=== PATIENT | female | born 1975 | race Asian ===

== ENCOUNTER → 2016-05-21 | Day surgery (SDC) | payer BC ==
[2016-05-21] VITALS (7 sets, daily range): BP systolic 104–124; BP diastolic 55–70
[~2016-05-21] VITALS: Ht 165.1 cm; Wt 60.3 kg
[~2016-05-21] MED LIST: COLACE100 MG ORAL; DiphenhydrAMINE 50mg/ml Inj IVP PRN; IBUPROFEN PO; IBUPROFEN200 MG ORAL; IRON325 M1 PO; LR 1000ml 1,000 ML IVLG SCH; LR 1000ml ONE; Midazolam 2mg/2ml Inj ONE; NORCO 10/3251 EA ORAL; Propofol 10mg/ml 20ml IV ONE; fentaNYL 100 mcg/2 mL IV ONE; fentaNYL 100 mcg/2 mL IV PRN
--- NOTE | 2016-05-21 07:58 | Pre-Procedure Note/Attestation ---
Pre-Procedure Note/Attestation Complete Prior to Procedure Planned Procedure: not applicable Procedure Narrative: esophagogastroduodenoscopycolon Indications for Procedure Pre-Operative Diagnosis: anemia Attestation I attest that I discussed the nature of the procedure; its benefits; risks and complications; and alternatives (and the risks and benefits of such alternatives ), prior to the procedure, with the patient (or the patient's legal sales representative leather goods). I attest that, if there was a reasonable possibility of needing a blood transfusion, the patient (or the patient's legal sales representative leather goods) was given the [facility] standardized written summary, pursuant to the Ashish Guerita Blood Safety Act ([place] Health and Safety Code # 1645, as amended). I attest that I re-evaluated the patient just prior to the surgery and that there has been no change in the patient's H&P, except as documented below: AMARILIS JORDAN May 21, 2016 07:58
--- NOTE | 2016-05-21 08:12 | Anethesia Preoperative Eval ---
Anesthesia Pre-op PMH/ROS General Date of Evaluation: May 21, 2016 Time of Evaluation: 07:42 Anesthesiologist: Cruz ASA Score: ASA 2 Mallampati Score Class I : Soft palate, uvula, fauces, pillars visible Class II: Soft palate, uvula, fauces visible Class III: Soft palate, base of uvula visible Class IV: Only hard plate visible Mallampati Classification: Class II Surgeon: Shaun Diagnosis: Anemia Surgical Procedure: EGD Colonocopy Anesthesia History: none Family History: no anesthesia problems Allergies: Coded Allergies: No Known Allergies (Unverified , 03/27/15) Past Medical History Cardiovascular: Denies: CAD, HTN, [place], arrhythmia, other, valve dz Pulmonary: Denies: COPD, LE, asthma, other Gastrointestinal/Genitourinary: Reports: GERD - mild, Denies: CRI, ESRD, other Neurologic/Psychiatric: Denies: CVA, TIA, dementia, depression/anxiety, other Endocrine: Denies: DM, hypothyroidism, other, steroids HEENT: Denies: CHILKO[place] (L), [place] (R), cataract (L), cataract (R), glaucoma, other Hematology/Immune: Reports: anemia, Denies: DVT, bleeding disorder, other Musculoskeletal/Integumentary: Denies: DDD, DJD, OA, RA, edema, other PMH Narrative: as above PSxH Narrative: Endometrial ablation Anesthesia Pre-op Phys. Exam Physician Exam Last Vital Signs Date Time Temp Pulse Resp B/P Pulse Ox O2 Delivery O2 Flow Rate FiO2 05/21/16 07:21 98.2 76 20 104/65 99 Room Air Constitutional: NAD Neurologic: CN 2-12 intact Cardiovascular: RRR, no M/R/G Respiratory: CTA Gastrointestinal: S/NT/ND Airway Exam Mallampati Score: Class II MO: full Neck: flexible ROM: full Teeth: intact Dentures: no lower, no upper Anesthesia Pre-op A/P Labs Urine Test Test 05/21/16 07:00 Urine HCG, Qualitative Negative Risk Assessment & Plan Assessment: ASA 2 Plan: MAC Pre-Antibiotics Drug: none DELISA ROSENBAUM M.D. May 21, 2016 08:12
--- NOTE | 2016-05-21 08:50 | Endoscopy Procedure Note ---
Endoscopy Procedure Note Indication for Procedure: anemia Procedures Performed: EGD, colonoscopy Operative Findings/Diagnosis: HH, gastritits - bx, normal colon Specimen: yes Pt Tolerated Procedure Well: Yes Estimated Blood Loss: none Anesthesiologist: see report Medication Given: see anesthesia record Implant(s) used?: No 50 yrs or older w/o bx or poly: Not Applicable 10yrs. F/U not recommended: Not Applicable If not recommended, why?: AMARILIS JORDAN May 21, 2016 08:50
--- NOTE | 2016-05-21 08:51 | Brief Operative Note ---
Immediate Post Operative Note Operative Note Chief Complaint: anemia Pre-op Diagnosis: anemia Procedure: EGD with Bx, colon Post-op Diagnosis: gastritis HH Surgeon: gallo Anesthesia: MAC Specimen: yes Complications: none Condition: stable Estimated Blood Loss: none Drains: none Implant(s) used?: No AMARILIS JORDAN May 21, 2016 08:51
--- NOTE | 2016-05-21 09:24 | Immediate Post-Op Evaluation ---
Immediate Post-Op Evalulation Immediate Post-Op Evalulation Procedure: EGD Colonoscopy Date of Evaluation: May 21, 2016 Time of Evaluation: 08:46 IV Fluids: 800 Blood Products: none Estimated Blood Loss: none Urinary Output: none Blood Pressure Systolic: 116 Blood Pressure Diastolic: 53 Pulse Rate: 64 Respiratory Rate: 20 O2 Sat by Pulse Oximetry: 99 Temperature (Fahrenheit): 97.4 Pain Score (1-10): 2 Nausea: No Vomiting: No Complications none Patient Status: awake, patent, none Hydration Status: adequate DELISA ROSENBAUM M.D. May 21, 2016 09:24
--- NOTE | 2016-05-21 09:34 | 48 Hour Post Anesthesia Eval ---
Post Anesthesia Evaluation Procedure: EGD Colonoscopy Date of Evaluation: May 21, 2016 Time of Evaluation: 09:33 Blood Pressure Systolic: 124 0: 59 Pulse Rate: 64 Respiratory Rate: 20 Temperature (Fahrenheit): 97.4 O2 Sat by Pulse Oximetry: 99 Airway: patent Nausea: No Vomiting: No Pain Intensity: 1 Hydration Status: adequate Cardiopulmonary Status: stable Mental Status/LOC: patient returned to baseline Follow-up Care/Observations: n/a Post-Anesthesia Complications: none Follow-up care needed: ready to discharge DELISA ROSENBAUM M.D. May 21, 2016 09:34
--- NOTE | 2016-05-21 09:37 | Operative Note - Dictated ---
GASTROENTEROLOGY PROCEDURE REPORT: DATE OF PROCEDURE: 05/21/2016 PROCEDURE: Upper gastrointestinal endoscopy with biopsy as well as colonoscopy. SURGEON: Sterling Anderson M.D. ANESTHESIA: Please see the separate anesthesiologist notes for details. PRE-ENDOSCOPIC DIAGNOSIS: Iron deficiency anemia. POST-ENDOSCOPIC DIAGNOSES: 1. A 1 cm hiatal hernia. 2. Mild gastritis status biopsy of the antrum. 3. Status post random biopsy of the duodenum and esophagus. 4. Normal colonoscopy. PROCEDURE: The procedure, its risks, indications, alternatives, and possible complications including, but not limited to, bleeding, infection, perforation, , and anesthesia complications were explained to the patient and informed consent was obtained. The patient was then sedated in the left lateral decubitus position. Rectal exam was done. The colonoscope was introduced in the rectum and advanced to the cecum. The cecum was identified by the appearance of the ileocecal valve. The colonoscope was then gradually withdrawn. The mucosa examined carefully. Examination of the colonic mucosa revealed no polyps, masses, or ulcers. Retroflexed view of the rectum was unremarkable. The colonoscope was removed. The patient was sent to recovery in good condition. COMPLICATIONS: None. RECOMMENDATIONS: 1. Follow up biopsy results. 2. Outpatient followup. Sterling Anderson M.D. DR: Arias JOB#: [id number] CC:
--- NOTE | 2016-05-21 09:48 | Operative Note - Dictated ---
GASTROENTEROLOGY PROCEDURE REPORT: DATE OF PROCEDURE: 05/21/2016 PROCEDURE: Upper gastrointestinal endoscopy with biopsy as well as colonoscopy. SURGEON: Sterling Anderson M.D. ANESTHESIA: Please see the separate anesthesiologist notes for details. PRE-ENDOSCOPIC DIAGNOSIS: Iron deficiency anemia. POST-ENDOSCOPIC DIAGNOSES.: 1. Mild gastritis status post biopsy of the antrum. 2. Status post random biopsy of the duodenum. 3. A 1 cm hiatal hernia. 4. Status post random biopsy of the lower and mid esophagus. 5. Normal colonoscopy. PROCEDURE: The procedure, its risks, indications, alternatives, and possible complications including, but not limited to, bleeding, infection, perforation, , and anesthesia complications were explained to the patient and informed consent was obtained. The patient was then sedated in the left lateral decubitus position. A diagnostic upper endoscope was introduced through the oropharynx and advanced to the duodenum without difficulty. The endoscope was then gradually withdrawn. The mucosa examined carefully. Examination of the upper gastric mucosa revealed gastritis and a 1 cm hiatal hernia. The endoscope was removed after biopsies were obtained and rectal exam was done. The colonoscope was introduced in the rectum and advanced to the cecum without difficulty. The cecum was identified by the appearance of the ileocecal valve. The colonoscope was then gradually withdrawn and mucosa examined carefully. Examination of colonic mucosa revealed no significant pathology. The retroflexed view of rectum was unremarkable. The colonoscope was removed. The patient was sent to recovery in good condition. COMPLICATIONS: None. RECOMMENDATIONS: 1. Follow up biopsy results. 2. Outpatient followup. Sterling Anderson M.D. DR: Arias JOB#: [id number] CC:
== END | disposition home or self-care (01) ==
LOC: GAS 06:45
DX: K29.70 Gastritis, unspecified, without bleeding (principal); K44.9 Diaphragmatic hernia without obstruction or gangrene; K21.9 Gastro-esophageal reflux disease without esophagitis; G70.00 Myasthenia gravis without (acute) exacerbation
CPT/HCPCS: 43239; 81025; J2250; J2704; J3010; J7120; 94003; 94150

== ENCOUNTER 2016-10-16 14:06 | Outpatient (CLI) | payer BC ==
[~2016-10-16 14:06] MED LIST changes: -DiphenhydrAMINE 50mg/ml Inj IVP PRN; -LR 1000ml 1,000 ML IVLG SCH; -LR 1000ml ONE; -Midazolam 2mg/2ml Inj ONE; -Propofol 10mg/ml 20ml IV ONE; -fentaNYL 100 mcg/2 mL IV ONE; -fentaNYL 100 mcg/2 mL IV PRN
== END 2016-10-16 16:06 | disposition home or self-care (01) ==
LOC: ULS 14:06
DX: R93.8 Abnormal findings on diagnostic imaging of other specified body structures (principal)

== ENCOUNTER 2016-12-09 06:55 | Day surgery (SDC) | payer BC ==
[2016-12-09] VITALS (10 sets, daily range): BP systolic 95–130; BP diastolic 52–75
[~2016-12-09] VITALS: Ht 165.1 cm; Wt 59.9 kg
[~2016-12-09 06:55] MED LIST changes: +PLAQUENIL200 MG ORAL
[2016-12-09] MEDS ORDERED: Bupivacaine w/Epi 0.5% 30ml Vial INJ ONE (07:03)
--- NOTE | 2016-12-09 07:15 | Pre-Procedure Note/Attestation ---
Pre-Procedure Note/Attestation Complete Prior to Procedure Procedure Narrative: right breast biopsy Indications for Procedure Pre-Operative Diagnosis: right breast mass Attestation I attest that I discussed the nature of the procedure; its benefits; risks and complications; and alternatives (and the risks and benefits of such alternatives ), prior to the procedure, with the patient (or the patient's legal delivery representative). I attest that, if there was a reasonable possibility of needing a blood transfusion, the patient (or the patient's legal delivery representative) was given the [facility] standardized written summary, pursuant to the Ashish Guerita Blood Safety Act ([place] Health and Safety Code # 1645, as amended). I attest that I re-evaluated the patient just prior to the surgery and that there has been no change in the patient's H&P, except as documented below: ALEX TORRES Dec 09, 2016 07:15
[2016-12-09] MEDS ORDERED: NS Irrig 1000ml ONE (08:00)
[2016-12-09] MEDS ORDERED: fentaNYL 100 mcg/2 mL IV ONE (08:00)
[2016-12-09] MEDS ORDERED: LR 1000ml ONE (08:00)
[2016-12-09] MEDS ORDERED: Sterile Water Irrig 1000ml IRRIG ONE (08:00)
[2016-12-09] MEDS ORDERED: Propofol 10mg/ml 20ml IV ONE (08:00)
--- NOTE | 2016-12-09 09:04 | Brief Operative Note ---
Immediate Post Operative Note Operative Note Pre-op Diagnosis: right breast mass Procedure: right breast excisional biopsy Surgeon: rene Anesthesiologist: dalia Specimen: yes Complications: none Condition: stable Estimated Blood Loss: minimal Drains: none Implant(s) used?: No ALEX TORRES Dec 09, 2016 09:04
[2016-12-09] MEDS ORDERED: Tylenol #3 tab (300mg/30mg) ORAL PRN (09:15)
[2016-12-09] MEDS ORDERED: HYDROmorphone 1mg/ml Carpuject SUBQ PRN (09:15)
--- NOTE | 2016-12-09 09:18 | Immediate Post-Op Evaluation ---
Immediate Post-Op Evalulation Immediate Post-Op Evalulation Date of Evaluation: Dec 09, 2016 Time of Evaluation: 09:18 Nausea: No Vomiting: No Hydration Status: adequate Given Within 1 Hr of Incision: Yes Yosvany Phillip MD Dec 09, 2016 09:18
--- NOTE | 2016-12-09 09:18 | Anethesia Preoperative Eval ---
Anesthesia Pre-op PMH/ROS General Date of Evaluation: Dec 09, 2016 Time of Evaluation: 08:00 ASA Score: ASA 1 Mallampati Score Class I : Soft palate, uvula, fauces, pillars visible Class II: Soft palate, uvula, fauces visible Class III: Soft palate, base of uvula visible Class IV: Only hard plate visible Mallampati Classification: Class I Anesthesia History: none Allergies: Coded Allergies: MUSSELS (Verified Adverse Reaction, Mild, low grade fever, 12/08/16) Anesthesia Pre-op Phys. Exam Physician Exam Last Vital Signs Date Time Temp Pulse Resp B/P Pulse Ox O2 Delivery O2 Flow Rate FiO2 12/09/16 09:05 65 17 114/68 100 Simple Mask 6.0 12/09/16 08:55 97.4 Anesthesia Pre-op A/P Labs Urine Test Test 12/09/16 07:10 Urine HCG, Qualitative Negative Yosvany Phillip MD Dec 09, 2016 09:18
[2016-12-09] MEDS ORDERED: fentaNYL 100 mcg/2 mL IV PRN (09:30)
[2016-12-09] MEDS ORDERED: Ketorolac 30mg Inj IV PRN (09:30)
--- NOTE | 2016-12-09 09:55 | 48 Hour Post Anesthesia Eval ---
Post Anesthesia Evaluation Procedure: right breast mass excision Date of Evaluation: Dec 09, 2016 Time of Evaluation: 09:55 Nausea: No Vomiting: No Hydration Status: adequate Follow-up care needed: N/A Yosvany Phillip MD Dec 09, 2016 09:55
--- NOTE | 2016-12-10 08:01 | Operative Note - Dictated ---
DATE OF OPERATION: 12/09/2016 SURGEON: Niko Stover M.D. CAMERA REPAIRMAN: None. ANESTHESIOLOGIST: Yosvany Phillip M.D. ANESTHESIA: General. PREOPERATIVE DIAGNOSIS: Right breast mass. POSTOPERATIVE DIAGNOSIS: Right breast mass. NAME OF OPERATION: Right breast excisional biopsy. FINDINGS AND INDICATIONS: The patient is a 41-year-old female with a history of several years of right lower lateral breast mass, firm. 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 Because of increasing growth and occasional tenderness when hitting the area the patient has opted to undergo excisional biopsy which was done uneventfully. FINDINGS: Findings at surgery was that of a very and moderately large approximately 5 x 4 cm in size rubbery hard mass, well encapsulated consistent with fibroadenoma. The procedure was done uneventfully. PROCEDURE: With the patient lying in the supine position on the operating table, under general anesthesia with the right breast area prepped and draped in usual sterile fashion with chlorhexidine, a transverse incision was carried out over the soft tissue mass. Subcutaneous tissues divided, careful dissection was undertaken around it and being able to mobilize it completely by blunt and sharp means. Hemostasis was adequate with the cautery. Specimens were removed, sent to pathology and the area irrigated with normal saline. Once I made sure hemostasis was complete with the cautery and with some Vicryl [id number] sutures, the deep breast tissues were approximated with 0 Vicryl interrupted sutures, subcutaneous tissues with 3-0 Vicryl suture, and the skin with 4-0 Vicryl subcuticular sutures, and Steri-Strips. Marcaine 0.5% with epinephrine 15 mL was injected for long-acting local anesthetic. The patient tolerated the procedure well. Estimated blood loss was less than 5 mL. Sponge and needle counts were correct. She went to the recovery room in stable condition. Niko Stover M.D. DR: LESLEY JOB#: [id number] CC: MEREDITH
== END 2016-12-09 11:15 | disposition home or self-care (01) ==
LOC: SUR 06:55
DX: D24.1 Benign neoplasm of right breast (principal); D50.9 Iron deficiency anemia, unspecified; G70.00 Myasthenia gravis without (acute) exacerbation; M35.1 Other overlap syndromes; K21.9 Gastro-esophageal reflux disease without esophagitis; Z91.018 Allergy to other foods
CPT/HCPCS: 19120; 81025; J1885; J2704; J3010; J7120; 94003; 94150